=== PATIENT | male | born 1965 | race Caucasian/White ===

== ENCOUNTER 2025-06-04 17:51 | Inpatient (IN) | payer MEDICAID ==
[~2025-06-04] VITALS: Ht 190.5 cm; Wt 114.0 kg
--- NOTE | 2025-06-04 18:23 | Physician Documentation ---
History of Present Illness ~ Chief Complaint: Stroke Alert Stated Complaint: L ARM NUMBNESS/TINGLING Time Seen by MD: 18:18 HPI Patient presents to the emergency room for evaluation of left upper extremity weakness. He has history of prior TIA with lower extremity weakness. Today at 3:15 p.m. patient noted left upper extremity weakness which lasted about 10 minutes while he was cooking but now continues to have paresthesias. No facial symptoms no leg symptoms. He initially presented to procedure urgent care who he reports they told that has nothing they could do and recommended go to the emergency room. Medication Reconciliation Allergies: Coded Allergies: No Known Allergies (Unverified , 06/04/25) Past Medical History Past Medical History: No Pertinent History Past Surgical History: no surgical history Alcohol Use: Occasionally Review of Systems ROS All review of systems negative except as per HPI Physical Exam Vital Signs: Temperature: 97.6, Source: Oral, Heart Rate: 98, Respiratory Rate: 18, Pulse Oximetry: 98, Weight: 114.000 Oxygen Flow Rate: 0 General Appearance General: Patient is awake, alert, oriented x4 in no acute distress. Speaking clearly Head: Normocephalic and atraumatic. Eyes: Conjunctival normal. EOMI. PERRL. ENT: Mucous membranes moist. Neck: Supple, trachea is midline. Chest: Clear to auscultation bilaterally without rales, rhonchi, or wheezes. There is no accessory muscle use or retractions. Cardiac: RRR without murmurs, gallops, or rubs. Neuro: Cranial nerves II-XII grossly intact. 4/5 strength left upper extremity compared to 5/5 strength right upper extremity Progress Results/Orders Results/Orders Orders - HERI GOMEZ MD Chest,Single View (06/04/25 18:53) Ct Stroke Alert (06/04/25 18:10) Cta Neck/Head (06/04/25 18:25) * Vital Signs Routine* [id number] (06/04/25 18:18) * Blood Glucose Assessment * ONCE (06/04/25 18:18) * Npo Until Passed Bedside Swa (06/04/25 18:18) Nursing Swallow Screen (06/04/25 18:18) Page Hospitalist (06/04/25 19:41) Fill Out Med Reconciliation (06/04/25 19:41) Completed Orders - HERI GOMEZ MD Electrocardiogram (06/04/25 18:18) Cbc/Diff (06/04/25 18:18) BMP (06/04/25 18:18) Pt Inr (06/04/25 18:18) PTT (06/04/25 18:18) Type And Screen (06/04/25 18:18) Urinalysis, Cult If Indicated (06/04/25 18:18) Chest,Single View (06/04/25 18:53) Ct Stroke Alert (06/04/25 18:10) Cta Neck/Head (06/04/25 18:25) Iohexol 350mg/Ml 100ml (Omnipaque 350mg/ (06/04/25 18:20) Vital Signs 06/04/25 06/04/25 06/04/25 06/04/25 18:14 18:36 18:49 18:52 Temp 97.6 Pulse 98 56 65 Resp 18 16 16 B/P (MAP) 149/111 158/100 Pulse Ox 98 99 99 O2 Flow Rate 0 06/04/25 06/04/25 18:53 19:54 Temp 97.6 97.6 Pulse 61 94 Resp 16 20 B/P (MAP) 158/100 (119) 136/79 (98) Pulse Ox 98 98 O2 Flow Rate 0 0 Laboratory Tests Test 06/04/25 18:19 06/04/25 18:35 06/04/25 19:09 Glucometer 128 H White Blood Count 6.8 Red Blood Count 5.20 Hemoglobin 13.2 L Hematocrit 40.0 L Mean Corpuscular Volume 76.9 L Mean Corpuscular Hemoglobin 25.4 L Mean Corpuscular Hemoglobin Concent 33.0 Red Cell Distribution Width 19.3 H Platelet Count 147 Mean Platelet Volume 8.8 Neutrophils (%) (Auto) 56.0 Lymphocytes (%) (Auto) 28.1 Monocytes (%) (Auto) 11.5 Eosinophils (%) (Auto) 3.6 Basophils (%) (Auto) 0.8 Neutrophils # (Auto) 3.8 Lymphocytes # (Auto) 1.9 Monocytes # (Auto) 0.8 Eosinophils # (Auto) 0.2 Basophils # (Auto) 0.1 CBC Comment Platelet Estimate Normal Red Blood Cell Morphology Perf Poikilocytosis Few Basophilic Stippling Anisocytosis 3+ Microcytosis Few Macrocytosis 2+ Prothrombin Time 11.9 INR International Normalized Ratio 1.2 Activated Partial Thromboplast Time 27 Coagulation Comments Sodium Level 138 Potassium Level 3.9 Chloride Level 105 Carbon Dioxide Level 28.8 Anion Gap 4 L Blood Urea Nitrogen 30 H Creatinine 1.46 H Estimated GFR/1.73 m2 49 BUN/Creatinine Ratio 20.5 H Glucose Level 101 Calcium Level 7.3 L Albumin 2.6 L Chemistry Comments Urine Specimen Description Cln catch midstream Urine Color Straw Urine Clarity Clear Urine pH 6.5 Urine Specific [place] 1.010 Urine Protein Negative Urine Glucose (UA) Negative Urine Ketones Negative Urine Occult Blood Negative Urine Nitrite Negative Urine Bilirubin Negative Urine Urobilinogen 0.2 Urine Leukocyte Esterase Negative Urine Culture Indicated Not ind Volume Urine Centrifuged 10 ml Urine Comment EKG/XRAY/CT/US/VASC/MRI EKG : Additional Comment EKG interpreted by myself shows time of 1842, rate 91, atrial fibrillation, normal axis, no ST changes Medical Decision Making Additional information obtaine: N/A Findings Patient presents to the emergency room that has symptoms of stroke within the window therefore level one stroke was called. Tele neurologist recommending against TNK as patient's symptoms are improving. EKG shows atrial fibrillation. He is not on anticoagulation. Differential Dx:Considerations: Include: Hall's Palsey, CVA, Delirium tremens, DKA, Drug overdose, Electrolyte imbalance, Encephalopathy, Hypoxemia, Hypoglycemia, Mass lesion, Respiratory failure, Subarachnoid Hemorrhage, TIA, Other Departure Admitted to Inpatient Unit: yes, to hospitalist Impression: Primary Impression: Cerebral infarction Additional Impression: Atrial fibrillation Referrals: NO PRIMARY CARE PROVIDER (PCP) Critical Care Note Total Time (mins): 38 Critical Care Note The very real possibility of a deterioration of this patient's condition required the highest level of my preparedness for sudden, emergent intervention. I provided critical care services, which included medication orders, frequent reevaluations of the patient's condition and response to treatment, ordering and reviewing test results, and discussing the case with various consultants. Ex cludes time spent performing separately billable procedures. The critical care time associated with the care of the patient was 38 minutes not counting procedures Signature Scribe Signature: No scribe Attestation: The note accurately reflects work and decisions made by me.Heri Gomez MD 06/04/25 18:59 HERI GOMEZ MD Jun 04, 2025 18:23
--- NOTE | 2025-06-04 18:43 | RADIOLOGY REPORT ---
EXAM: CT CT STROKE ALERT INDICATION: left sided weakness TECHNIQUE: CT of the head without intravenous contrast. Radiation Dose : 1. Head: CT Dose: CTDI volume is 62.4 mGy. Dose-length product is 1238.55 mGy*cm The dose indicators for CT are the volume Computed Tomography (CT) Dose Index (CTDIvol) and the Dose Length Product (DLP), and are measured in units of mGy and mGy-cm, respectively. These indicators are not patient dose, but values generated from the CT scanner acquisition factors. The report includes radiation exposure data for exposures received during this examination. COMPARISON: CT CTA NECK/HEAD on DOS: 06/04/25 FINDINGS: There is no evidence of acute intracranial hemorrhage, extra-axial collection, mass effect, midline shift, herniation or hydrocephalus. The ventricles, sulci and cisterns are age appropriate. The romo-white differentiation is intact. Patchy periventricular and subcortical white matter hypoattenuation is nonspecific but may be related to small vessel ischemic disease. The visualized paranasal sinuses and mastoid air cells are clear. The surrounding soft tissues and osseous structures are unremarkable. IMPRESSION: No acute intracranial abnormality. Radiation optimization: All CT scans at this facility use at least one of these dose optimization techniques: automated exposure control mA and/or kV adjustment per patient size (includes targeted exams where dose is matched to clinical indication) or iterative reconstruction.
--- NOTE | 2025-06-04 18:44 | ELECTROCARDIOGRAPH REPORT ---
[facility] Test Date: 2025-06-04 Test Time: 18:42:06 Pat Name: CESAR GILLIAM Department: [facility]-ER Patient ID: [facility]-[id number] Room: Gender: M Medical Imaging Director: : 1965 Requested By: AARON BATUISTA Order Number: [id number] Reading MD: Dr. Ruperto Cardenas Measurements Intervals [place] Rate: 91 P: 0 IN: 0 QRS: 74 QRSD: 117 T: 239 QT: 346 QTc: 426 Interpretive Statements Atrial fibrillation Incomplete right bundle branch block LVH with secondary repolarization abnormality Electronically Signed On 06-04-2025 20:35:[address] Ruperto Cardenas Please click the below link to view image of tracing.
[2025-06-04 19:01] LABS: MEAN PLATELET VOLUME 8.8 FL (7.4-10.4); RED CELL DISTRIBUTION WIDTH 19.3 % (11.5-14.5)
[2025-06-04 19:06] LABS: CREATININE 1.46 MG/DL (0.60-1.10); TOTAL CARBON DIOXIDE 28.8 MMOL/L (24-32); eCRCL 64 ML/MIN; eGFR 49 ML/MIN
[2025-06-04 19:10] LABS: APTT 27 SECONDS (22-32); INR 1.2 INR
--- NOTE | 2025-06-04 19:11 | RADIOLOGY REPORT ---
EXAM: CT CTA NECK/HEAD CLINICAL HISTORY: left sided weakness TECHNIQUE: CT angiogram of the head and neck was performed without and with intravenous contrast. 3D MIP reconstructed images were created and archived on the PACS system. This exam was performed according to our departmental dose optimization program. Up-to-date CT equipment and radiation dose reduction techniques are utilized as appropriate. COMPARISON: CT CT STROKE ALERT on DOS: 06/04/25 FINDINGS: CTA head: Dominant right vertebral artery. Mild mixed atherosclerotic plaque in the bilateral V4 segments. There is mild calcified atherosclerotic plaque in the bilateral cavernous and supraclinoid ICAs. The distal internal carotid, vertebral, and basilar arteries are patent without focal narrowing or occlusion. The anterior, middle, and posterior cerebral arteries are patent without focal narrowing. No aneurysm or arteriovenous malformation is identified. CTA neck: The aortic arch vessel origins are widely patent. The common carotid and cervical portions of the internal carotid and right vertebral arteries are patent without focal narrowing according to NASCET criteria. There is occlusion of the left vertebral artery with reconstitution of blood flow at the V3 se gment. There is [id number] mixed atherosclerotic plaque at the bilateral carotid bifurcations. No aneurysm, AVM, or dissection is identified. The cervical soft tissues are unremarkable. The paranasal sinus and mastoid air cells are clear. The lung apices are clear. Multilevel cervical spondylosis with moderate disc space narrowing at C4-C5 and C5-C6. IMPRESSION: 1. 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 DDX includes dissection or atherosclerotic occlusion. 2. Otherwise patent arteries in the head and neck without large vessel occlusion, significant stenosis, aneurysm, AVM, or dissection.
--- NOTE | 2025-06-04 19:19 | RADIOLOGY REPORT ---
CHEST RADIOGRAPH Indication: Stroke Alert Technique: Single frontal view of the chest was obtained COMPARISON: CT CTA NECK/HEAD on DOS: 06/04/25 FINDINGS: Lines and Tubes: None Lungs: Clear Pleura: No effusion. No pneumothorax. Cardiomediastinal contours: Cardiomegaly Bones: Unremarkable IMPRESSION: Cardiomegaly.
[2025-06-04 19:28] LABS: LEUKOCYTE ESTERASE ,URINE NEGATIVE (Neg); NITRITES, URINE NEGATIVE (Neg); OCCULT BLOOD,URINE NEGATIVE (Neg)
[2025-06-04 19:29] LABS: PLATELET ESTIMATE NORMAL
[2025-06-04 19:33] LABS: UA COLLECTION TYPE CLN CATCH MIDSTREAM
--- NOTE | 2025-06-04 19:44 | [facility]URO CONSULT REPORT ---
[facility] Procedure Note [facility] Procedure Note Consult [facility] Note # Demographics Consult Type: Acute Stroke Level 2 (4.5-24 hrs) Patient Location: Emergency Room First Name: CESAR Last Name: MANE Date of : 1965 Age: 59 Gender: Male Facility: [facility] Time of Initial Page (): 06/04/2025 18:37 First Contact with Site (): 06/04/2025 18:37 # HPI History: 59 y/o M presents with Lt hand weakness and numbness with onset at 345PM. Symptoms have resolved. # Scores Time of exam and NIHSS (): 06/04/2025 18:43 Level of Consciousness 1a: [0] = Alert; keenly responsive LOC Questions 1b: [0] = Answers both questions correctly LOC Commands 1c: [0] = Performs both tasks correctly Best Gaze 2: [0] = Normal Visual 3: [0] = No visual loss Facial Palsy 4: [0] = Normal symmetrical movements Motor Arm Left 5a: [0] = No drift Motor Arm Right 5b: [0] = No drift Motor Leg Left 6a: [0] = No drift Motor Leg Right 6b: [0] = No drift Limb Ataxia 7: [0] = Absent Sensory 8: [0] = Normal Best Language 9: [0] = No aphasia Dysarthria 10: [0] = Normal Extinction and Inattention 11: [0] = No abnormality NIHSS Total: 0 # Data Head CT: negative for acute changes CTA Head: no large vessel occlusion CTA Neck: 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 # Assessment Impression: - Ischemic Stroke (Acute) # Plan Thrombolytic/Intervention: NOT IV Thrombolysis or IA Intervention candidate Thrombolytic Exclusion (< 3 hour window): - NIHSS = 0 Intraarterial Exclusion: - no large vessel occlusion (LVO) Target Blood Pressure: - SBP < 220 - DBP < 120 Labs: - CBC - comprehensive metabolic panel - lipid panel Imaging: (urgency: routine): - MRI Brain without contrast Diagnostic Test: - echo with bubble study Therapy/Evaluation: - PT/OT evaluation - speech/swallow consultation Medication: - aspirin 81 mg PO PLUS clopidogrel (Plavix) 75 mg PO daily for 21 days, then monotherapy thereafter DVT Prophylaxis: - enoxaparin (Lovenox) 40 mg subcutaneously daily Other: - If patient has any neurological deterioration please call me back immediately - LDL < 70 - telemetry monitoring permissive HTN 24 hrs # Logistics Attestation of consult completion: The patient is located at: [facility]. Facility staff participated in the visit. I performed this t elemedicine visit from my offsite office utilizing interactive 2 way audio and visual telecommunication technology at the request of the onsite emergency room provider. Total time spent in telemedicine encounter: I spent 30 minutes reviewing clinical data and/or imaging, obtaining history, examining the patient, communicating with the onsite care team, and in preparation of this report. # Demographics First Name: CESAR Last Name: MANE Facility: [facility] Electronically signed at 06/04/2025 19:44 ([place] Time) by Cely Muniz DO Neuro Consult Order placed for: Yes SASKIA MUNIZ DO Jun 04, 2025 19:44
[2025-06-04] MEDS ORDERED: magnesium sulf-water 2g/50mL 50 ML IV PRN (20:30)
[2025-06-04] MEDS ORDERED: ondansetron/PF 4mg/2ml inj IV PRN (20:30)
[2025-06-04] MEDS ORDERED: magnesium sulf-water 4G/100mL 100 ML IV PRN (20:30)
[2025-06-04] MEDS ORDERED: potassium Cl 20 mEq SR tablet PO PRN ×2 (20:30)
[2025-06-04] MEDS ORDERED: magnesium hydroxide 30ml (MOM) UD suspension PO PRN (20:30)
[2025-06-04] MEDS ORDERED: glucagon, human recombinant 1mg kit SUBCUT PRN (20:30)
[2025-06-04] MEDS ORDERED: dextrose 50%-water 50ml dispensing syringe IV PRN ×2 (20:30)
[2025-06-04] MEDS ORDERED: potassium Cl 40MEQ/1/2NS 520ml 520 ML IV PRN (20:30)
[2025-06-04] MEDS ORDERED: HYDROcodone/acetaminophen 5mg/325mg tablet PO PRN (20:30)
[2025-06-04] MEDS ORDERED: mag hydrox/Alum hydrox/simeth 30ml oral suspension PO PRN (20:30)
[2025-06-04] MEDS ORDERED: DEXTROSE 15 GM of carb/4 tabs (each vial/BOTTLE has 4 tablets) PO PRN ×2 (20:30)
[2025-06-04] MEDS ORDERED: magnesium Cl slow-release 64mg tablet PO PRN (20:30)
[2025-06-04] MEDS: normal saline 1000ml 1,000 ML IV SCH (20:58)
[2025-06-04] MEDS: INSULIN LISPRO 100 UNIT/ML INSULN.PEN MULTI-DOSE SQ SCH (21:00)
[2025-06-04] MEDS: PERFLUTREN PROTEIN-A MICROSPHR (Optison) 0.22 MG/ML 3ML VIAL IV ONE (21:02)
[2025-06-04 21:11] LABS: CHOL/HDL RATIO 5.7 (0.00-4.99); LDL CHOLESTEROL 115 MG/DL (50-100); PHOSPHORUS 3.6 MG/DL (2.3-4.5); PRO BRAIN NATRIURETIC PEPTIDE 2358 PG/ML (0-125)
[2025-06-04 21:15] LABS: OSMOLALITY 299 MOSM/K (280-300)
[2025-06-04 21:19] LABS: OSMOLALITY UA 715 MOSM/K (50-1400)
[2025-06-04 21:31] LABS: % IRON SATURATION 11 % (11-46)
[2025-06-04 21:35] VITALS: BP 149/110; PULSE 65; RESP 16; TEMP 97.8; O2SAT 100
[2025-06-04 21:39] LABS: URINE AMPHETAMINE SCREEN NEGATIVE (Neg); URINE BARBITUATE SCREEN NEGATIVE (Neg); URINE BENZODIAZEPINES SCREEN NEGATIVE (Neg); URINE CANNABINOID SCREEN NEGATIVE (Neg); URINE COCAINE SCREEN NEGATIVE (Neg); URINE METHADONE SCREEN NEGATIVE (Neg); URINE OPIATE SCREEN NEGATIVE (Neg); URINE PHENCYCLIDINE SCREEN NEGATIVE (Neg)
[2025-06-04 22:00] VITALS: BP 148/104; PULSE 66; RESP 21; TEMP 98.3; O2SAT 98
--- NOTE | 2025-06-04 22:23 | HISTORY AND PHYSICAL-Residence ---
History & Physical Providers to CC Resident Creating Document: ROSANA DAVENPORT, RES CC: APRIL PURVIS MD ~ History of Present Illness Reason for Admit\Complaint: TIA History of Present Illness A 59-year-old male patient with a history of transient ischemic attack (TIA) two years ago, but no other significant medical history, presented to the ED with complaints related to his left upper extremity weakness. The patient reported that while cooking, he attempted to sampler pickup an object with his left hand but was unable to do so. He experienced weakness in his left arm, which persisted despite waiting for it to resolve. The patient visited a medical walk-in clinic called [facility] but did not undergo any testing there and subsequently returned home, hoping his symptoms would improve. However, he continued to experience paresthesia and weakness in his left arm, prompting him to return to the ED. Upon presentation, he was evaluated for a stroke, and a teleneurologist was consulted. A head CT scan was performed, which showed no acute changes or vessel occlusion. 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 Since the patient was outside the thrombolytic window, he did not receive any thrombolysis. By the time of his evaluation in the ED, NIHSS score was 0, and his symptoms had resolved. There were no residual symptoms of acute ischemic stroke. On my evaluation, patient did not have any residual symptoms/motor weakness; however patient's EKG showed rate controlled atrial fibrillation, new onset In addition patient also stated that he has been feeling fatigued tired and his increase in urination for up to 4 times every night for the last one year. He also stated that he noticed increasing shortness of breath palpitation and gets easily winded windows more than his routine activities. He used to be extremely active and could run 5 miles very easily but now he is finding it difficult. The patient does not have a primary care doctor and wishes to establish care with one upon discharge. He lives in his home with his son and also visits an anti-aging doctor named Parminder Hernandez for testosterone injections. Allergies: Coded Allergies: No Known Allergies (Unverified , 06/04/25) Past Medical History Past Medical History Prior TIA two years ago Past Social History Social History Comment Patient drinks about 2-3 beers for about 3 times a week Patient stated that he smokes marijuana and does cocaine occasionally Patient denies smoking tobacco Alcohol Use: Occasionally ROS ROS Constitutional: No fever, dizziness, no weakness, no decrease in appetite HEENT: Normal vision. No sore throat, epistaxis, tinnitus Cardiovascular: No chest pain/discomfort, palpitations, syncope. no pedal edema Respiratory: No sob, cough,hemoptysis Gastrointestinal: No abdominal pain, nausea, vomiting. No diarrhea, melena. Genitourinary: No frquency, urgency, incontinence, nocturia. No dysuria, hematuria Musculoskeletal: Normal, no pains Endocrine: No fatigue, polydipsia, polyuria. No heat or cold intolerance Neurologic: No headache, vertigo. No weakness, numbness or tingling of extremities Psychiatric: No hallucinations/delusions, no anhedonia, no suicidal ideation Hematologic: No bruises Exam Vitals: Vital Signs Date Time Temp Pulse Resp B/P (MAP) Pulse Ox O2 Delivery O2 Flow Rate FiO2 06/04/25 20:29 97.6 101 14 150/111 (124) 99 0 General: General: Awake, oriented to person, place and time HEENT: Conjunctive are pink, sclerae clear, no icterus, pupil is equal in both sides, reactive to light, no ear discharge, no pharyngeal erythema or an edema. Neck: Supple, no JVD, no lymphadenopathy and thyromegaly. Chest: Equal air entry on both lungs, no additional sounds no rhonchi no wheezing at the moment. Bilateral gynecomastia noted Cardiovascular: S1-S2 irregular rate and rhythm, no gallops, no rubs, no murmurs Abdomen: No visible peristalsis, Bowel sounds present on auscultation, soft, no tenderness, no guarding, no rigidity Extremities: no pitting edema bilaterally, capillary refill intact, peripheral pulsations are intact on both sides. Bilateral lower extremity varicose veins noted, bilateral lower extremity near vision scars post mountain biking Neurologic: Mental status: alert and conscious, oriented to place, person and time, preserved memory, normal speech. Cranial nerves I-XII: Normal. Motor system: Preserved power, coordination, no evidenced involuntary movements, strength 5/5 in four extremities. Sensory system: Preserved temperature, pain and vibration sensation. 2+ deep tendon reflexes in biceps, triceps, quadriceps. Negative Babinski. Cerebellar: No nystagmus, dysdiadochokinesia, normal [id number] testing. Musculoskeletal: No joint swelling, deformities, inflammations, and no scoliosis and back tenderness Skin: Warm and dry. Dry oral mucosa. Diagnostic Data Last Recorded Lab Results: [id number] Diagnostic Data: Laboratory Tests Test 06/04/25 18:35 Prothrombin Time 11.9 SECONDS (9.0-12.0) INR International Normalized Ratio 1.2 INR Activated Partial Thromboplast Time 27 SECONDS (22-32) Coagulation Comments Advance Care Planning Advanced Care plannin - 30 Minutes (Spent 17 minutes discussing advanced care planning/resuscitative measures, patient decided he wants to be full code) Additional Plan Assessment: A 59-year-old male patient with a history of transient ischemic attack (TIA) two years ago, but no other significant medical history, presented to the ED with complaints related to his left upper extremity. Patient's TIA has resolved. Patient also developed new onset atrial fibrillation rate controlled. 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 Re-consulted teleneurologist-they recommended patient to be on Eliquis only; and recommended not to initiate aspirin/clopidogrel Follow up with lipid panel, echocardiogram with bubble study, MRI head Newly diagnosed atrial fibrillation, rate controlled Agustín Vasc score 2 Initiated the patient on Eliquis 5 mg b.i.d. Continue telemetry monitoring TSH normal Consult cardiology in a.m. Acute kidney injury on CKD stage II RISHABH secondary to possible vasomotor nephropathy Patient's creatinine is elevated 1.46 Ordered urine lytes Possible newly diagnosed congestive heart failure NYHA class I, AHA stage A Patient stated that he has been feeling fatigue, increase in shortness of breath and getting winded down compared to before, decrease in physical activity ProBNP elevated at 2358, chest x-ray shows cardiomegaly Ordered echocardiogram Possible newly diagnosed type 2 diabetes mellitus Patient reported increased symptoms of fatigue, frequent urination Blood glucose levels elevated 147, initiated the patient on hyperglycemia hypoglycemic protocol Ordered HbA1c Patient takes testosterone injections for sexual satisfaction Active use of marijuana/cocaine U tox negative Substance use navigator consulted Code Status: Full code DVT Prophylaxis: Eliquis Lines/Tubes: PIV Nutrition: Heart healthy diet PT:yes Prognosis: Guarded Disposition: Follow up with echocardiogram, reconsult teleneurologist depending on MRI report. Please establish care with a primary care doctor for the patient on discharge. Consult cardiology in am Rosana Davenport MD Internal medicine resident,PGY-1 Patient seen and assessed using HIPAA compliant audio visual aid. I discussed the plan with resident and agree with H and P and assessment and plan. April Purvis MD Critical Care Date of Service: Jun 04, 2025 Billing Provider: APRIL PURVIS MD, JAHNAVI, RES Jun 04, 2025 22:23 APRIL PURVIS MD Jun 05, 2025 18:14
[2025-06-04 23:34] VITALS: RESP 21; O2SAT 100
[2025-06-05 02:00] VITALS: BP 106/68; PULSE 95; RESP 25; TEMP 97.8; O2SAT 96
[2025-06-05 04:45] LABS: MEAN PLATELET VOLUME 8.5 FL (7.4-10.4); RED CELL DISTRIBUTION WIDTH 19.0 % (11.5-14.5)
[2025-06-05 04:58] LABS: CREATININE 1.11 MG/DL (0.60-1.10); TOTAL CARBON DIOXIDE 26.0 MMOL/L (24-32); eCRCL 84 ML/MIN; eGFR 67 ML/MIN
[2025-06-05 06:00] VITALS: BP 133/98; PULSE 52; RESP 18; TEMP 96.8; O2SAT 99
[2025-06-05] MEDS ORDERED: NO HOME MEDS (07:55)
[2025-06-05] MEDS: docusate sod 100mg capsule PO SCH (07:57)
[2025-06-05] MEDS: K and/or MAG REPLACEMENT MC SCH (07:58)
[2025-06-05 08:00] VITALS: RESP 18; O2SAT 99
[2025-06-05] MEDS ORDERED: aspirin 81mg, enteric-coated 1 TAB TABLET.DR PO SCH (08:00)
[2025-06-05 10:00] VITALS: BP 118/68; PULSE 64; RESP 16; TEMP 97.7; O2SAT 100
--- NOTE | 2025-06-05 17:07 | CONSULTATION REPORT ---
History of Present Illness Providers to CC CC: JOSE CARLOS SMITH MD ~ Reason for Admit\Admit Dx: Cardiology Consultation Refering MD: Hospitalist/Residency Service History of Present Illness This is a 59 year-old male who presented to the ER 06/04/25 with sudden onset of left arm weakness. PMH significant for TIA 2 years ago, no other cardiovascular history. CTA revealed left vertebral artery occlusion. EKG revealed him to be in Afib, which he has no known history of. 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 He has a history of alcohol and drug abuse, but these are not daily habits. Allergies: Coded Allergies: No Known Allergies (Unverified , 06/04/25) Active prescriptions Active Cardiac Medications: Eliquis 5mg BID Atorvastatin 80mg QD Home Medications Home Medications Active Reported Testosterone injections per Dr. Parminder Hernandez. Herbal supplements to support sleep. Past Medical History Medical History Comment TIA two years ago Past Surgical History Surgical History Comment No cardiopulmonary surgical history Past Family History Family History: FH: diabetes mellitus FATHER Past Social History Social History Comment Pt. drinks alcohol 3 days per week, mostly on the weekends. Pt. smokes marijuana occasionally. Pt. uses cocaine occasionally (last use 05/31/25). Pt. denies nicotine use Physical Exam Last Vital Signs Recorded: Temperature: 97.7, Source: Oral, Heart Rate: 64, Respiratory Rate: 16, BP: 118/68, Pulse Oximetry: 100, Weight: 114.000 General Appearance: alert, no apparent distress EENT: PERRL/EOMI Neck: normal inspection, full range of motion Respiratory: lungs clear, normal breath sounds, no respiratory distress Chest: no accessory muscle use Cardiovascular: normal peripheral pulses, no edema Peripheral Pulses: 2+ radial (R), 2+ radial (L), 2+ dorsalis pedis (R), 2+ dorsalis pedis (L) Gastrointestinal: normal palpation, non-tender, bowels sounds present Extremities: normal range of motion Extremities Slight residual weakness in left hand compared to right Neurologic: oriented x4, memory intact Psychiatric: normal mood/affect Skin: normal color Lymphatic: no adenopathy Review of Systems All Other Systems at this time: Reviewed and Negative ROS ROS reviewed and negative except that which is specified in HPI Results EKG EKG Atrial Fibrillation, CVR. 91bpm. Incomplete RBBB Echocardiogram Echocardiogram Awaiting dictated report. Initial impression: LVEF 35-40% X-ray X-ray FINDINGS: Lungs: Clear Pleura: No effusion. No pneumothorax. Cardiomediastinal contours: Cardiomegaly Bones: Unremarkable IMPRESSION: Cardiomegaly. Other Other CTA Head and Neck 1. 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 DDX includes dissection or atherosclerotic occlusion. 2. Otherwise patent arteries in the head and neck without large vessel occlusion, significant stenosis, aneurysm, AVM, or dissection. Diagram Lab Result Diagram: 06/05/2542706/05/25427 Assessment/Plan Additional Plan This is a 59 year-old male who presented to the ER 06/04/25 with sudden onset of left arm weakness. PMH significant for TIA 2 years ago, no other cardiovascular history. CTA revealed left vertebral artery occlusion. EKG revealed him to be in Afib, which he has no known history of. Chronic Systolic Heart Failure LVEF estimated at 35-40% (awaiting Mat Puncher dictation) History of binge drinking ETOH, cocaine use. proBNP 2,358 -Start Entresto 24/26mg BID -Start Spironolactone 25mg QAM -Start Metoprolol Succinate 25mg QD -Start Jardiance 10mg QD -Pt. counselled on making changes to healthier lifestyle choices. -Follow up as outpatient for management of HFrEF, and up-titration of GDMT. Atrial Fibrillation -Continue Eliquis 5mg BID -Metoprolol as above for rate control. -Follow up as outpatient for further management of Afib. This plan was discussed with supervising physician, Dr. Jacob Smith, who agrees with above. Supervising MD Supervising Physician: DELMI Gottlieb Jun 05, 2025 17:07
--- NOTE | 2025-06-05 17:48 | CARDIOLOGY REPORT ---
APPROVED REPORT EXAM: Comprehensive 2D, Doppler, and color-flow Echocardiogram with saline. 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 4.01 cm IVC 23.76 mm FS (%) 16.6 % SV 68.0 ml CO 8.2 L/min M-Mode Dimensions MV EPSS 1.7 (<0.5cm) Aortic Valve AoV Peak Hermilo. 143.2 cm/s AoV VTI 19.1 cm AO Peak GR. 8.2 mmHg AO Mean GR. 4 mmHg LVOT VTI 14.07 cm LVOT Peak Hermilo. 89.7 cm/s CHRIS(VTI)/BSA 3.26 cm2/m2 CHRIS (VTI) 3.26 cm2 AV DI 0.74 % Mitral Valve MV E Velocity 78.8 cm/s MV Peak Gr. 4 mmHg MV DECEL TIME 120 ms MV PHT 52 ms MVA (PHT) 4.23 cm2 MR VMax 446.4 cm/s MV VMax 96.9 cm/s MR PG Max 79.7 mmHg Tricuspid Valve TR P. Velocity 272 cm/s RAP ESTIMATE 10 mmHg TR Peak Gr. 30 mmHg RVSP 40 mmHg LEFT VENTRICLE LV is moderately dilated with moderate concentric hypertrophy. Overall systolic function appears severely reduced with global hypokinesis. LVEF is 35%. RIGHT VENTRICLE RV appears mildly dilated with normal contractility. RVSP is estimated at 40 mmHG. ATRIA Left atrium is severely dilated. Saline study was performed with 2 IV injections of 10 ccs of agitated normal saline at rest, with cough, and with valsalva. Negative saline study for right to left flow. AORTIC VALVE Trileaflet AV appears sclerotic without stenosis. Trace insufficiency. MITRAL VALVE MV is thickened with mild annular thickening and no stenosis. Trace to mild mitral regurgitation. TRICUSPID VALVE The tricuspid valve is normal in structure. Trace tricuspid regurgitation. PULMONIC VALVE The pulmonary valve is normal in structure. Trace pulmonic insufficiency. GREAT VESSELS The aortic root is normal in size. The ascending aorta is measured at 4.0 cm. IVC is dilated and collapses greater than 50% with inspiration. PERICARDIUM There is no pericardial effusion. Other Information Study Quality: Adequate Conclusion LV is moderately dilated with moderate concentric hypertrophy. Overall systolic function appears severely reduced with global hypokinesis. LVEF is 35%. RV appears mildly dilated with normal contractility. RVSP is estimated at 40 mmHG. Left atrium is severely dilated. Saline study was performed with 2 IV injections of 10 ccs of agitated normal saline at rest, with cough, and with valsalva. Negative saline study for right to left flow. Trileaflet AV appears sclerotic without stenosis. Trace insufficiency. MV is thickened with mild annular thickening and no stenosis. Trace to mild mitral regurgitation. The tricuspid valve is normal in structure. Trace tricuspid regurgitation. The pulmonary valve is normal in structure. Trace pulmonic insufficiency. The ascending aorta is measured at 4.0 cm. There is no pericardial effusion.
[2025-06-05 18:00] VITALS: BP 135/108; PULSE 114; RESP 17; TEMP 97.6; O2SAT 99
[2025-06-05] MEDS: sacubitril/valsartan 24mg-26mg tablet PO SCH (20:51)
--- NOTE | 2025-06-05 20:53 | PROGRESS NOTE ---
Daily Progress Note Providers to CC ~ Antibiotic Timeout Antibiotic Ordered?: No Subjective Patient was seen in his room as per patient his weakness over left upper extremity resolved he was ambulating well speech normal. Patient mentioned that he is taking testosterone in outpatient setting in I strongly recommended to stop him as it increases risk for stroke and [place] . Patient admitted that he use cocaine and willing to stop it. Patient does not have any PCP or school psychology specialist in outpatient setting. Echocardiogram done which showed ejection fraction 35% with RVSP 40. Cardiology consultation requested from Dr. Ethan Smith and Cardiology team evaluated the patient today. CTA revealed left vertebral artery occlusion which I discussed with Dr. Oh and he does not recommend any surgical procedure and to consult teleNeurology specialist who evaluated the patient. Objective Vital Signs Date Time Temp Pulse Resp B/P (MAP) Pulse Ox O2 Delivery O2 Flow Rate FiO2 06/05/25 18:30 106 06/05/25 18:00 97.6 17 135/108 (117) 99 Room Air 06/04/25 20:29 0 Result Diagram: 06/05/25 0428 06/05/25 0428 General-patient not in any acute distress, obese, alert awake oriented, HEENT-atraumatic normocephalic, neck supple without elevated JVD, no thyromegaly or carotid bruit. No lymphadenopathy bilaterally. Eyes-no icterus or pallor seen in eyes Chest-clear to auscultation bilaterally, breathing nonlabored no tachypnea, no wheezing, no crepitation, no crackles. Heart-S1-S2 normal, regular heart rate no murmur Abdomen bowel sounds positive on auscultation, soft nondistended nontender no guarding, no rigidity Skin -multiple skin tattoo present over extremities and chest Neurology-grossly intact, nonfocal alert awake oriented, no focal neurological deficit present no drooping of angle of mouth no speech abnormality no weakness over extremities. Extremity- no pedal edema able to move all 4 extremities, ambulating well Psychiatry - patient is not confused or agitated cooperated during physical examination Coagulation Studies Laboratory Tests Test 06/04/25 18:35 Prothrombin Time 11.9 SECONDS (9.0-12.0) INR International Normalized Ratio 1.2 INR Activated Partial Thromboplast Time 27 SECONDS (22-32) Coagulation Comments Problem\Assessment\Plan A 59-year-old male patient with a history of transient ischemic attack (TIA) two years ago, but no other significant medical history, presented to the ED with complaints related to his left upper extremity. Patient's TIA has resolved. Patient also developed new onset atrial fibrillation rate controlled. He is currently being monitored for further strokes, being treated for AFib. Patient was seen in his room as per patient his weakness over left upper extremity resolved he was ambulating well speech normal. Transient ischemic attack resolved NIHSS score 0 ABCD2 score 5 points [4-5 points: Moderate Risk , 2-Day Stroke Risk: 4.1% ,7-Day Stroke Risk: 5.9%,90-Day Stroke Risk: 9.8%] Patient had left-sided upper extremity numbness and weakness, resolved Did not undergo any thrombolysis was outside thrombolysis window Head CT did not show any acute intracranial abnormality, CTA head and neck reported Occlusion of the extracranial left vertebral artery with reconstitution of blood flow at the V3 segment Tele neurologist was consulted, recommended echo with bubble study, MRI head without contrast Plan His CTA revealed left vertebral artery occlusion which I discussed with Dr. Ivan and he does not recommend any surgical procedure and to consult teleNeurology specialist who evaluated the patient. Neuro checks in place Did not initiate the patient on aspirin/clopidogrel at this point because he is on Eliquis for his newly diagnosed atrial fibrillation. Re-consulted teleneurologist-they recommended patient to be on Eliquis only; and recommended not to initiate aspirin/clopidogrel Follow up with lipid panel, echocardiogram with bubble study, MRI head Patient is ambulating well , no speech abnormality Newly diagnosed atrial fibrillation, rate controlled Agustín Vasc score 2 Initiated the patient on Eliquis 5 mg b.i.d. Continue telemetry monitoring TSH normal Cardiology consultation done today patient is on metoprolol and Eliquis Acute kidney injury on CKD stage II RISHABH secondary to possible vasomotor nephropathy Patient's creatinine is elevated 1.46 Ordered urine lytes Possible newly diagnosed congestive heart failure NYHA class I, AHA stage A Patient stated that he has been feeling fatigue, increase in shortness of breath and getting winded down compared to before, decrease in physical activity ProBNP elevated at 2358, chest x-ray shows cardiomegaly Echocardiogram done which showed ejection fraction 35% with RVSP 40. Cardiology consultation requested from Dr. Ethan Smith and Cardiology team evaluated the patient today. Recommended to start Entresto, spironolactone, metoprolol, Jardiance and to continue Eliquis 5 mg b.i.d. for afib . Possible newly diagnosed type 2 diabetes mellitus Patient reported increased symptoms of fatigue, frequent urination Blood glucose levels elevated 147, initiated the patient on hyperglycemia hypoglycemic protocol Ordered HbA1c Patient mentioned that he is taking testosterone in outpatient setting and I strongly recommended to stop him as it increases risk for stroke and [place] Active use of marijuana/cocaine U tox negative Substance use navigator consulted Patient admitted that he use cocaine and willing to stop it. Code Status: Full code DVT Prophylaxis: Eliquis Lines/Tubes: PIV Nutrition: Heart healthy diet PT:yes Patient's current condition is guarded we will continue to follow patient in AM . Date of Service: Jun 05, 2025 Billing Provider: MARC LOPES MD Common Visit Codes: [id number] INP/OBS CARE(HIGH) MARC LOPES MD Jun 05, 2025 20:53
[2025-06-05 22:00] VITALS: BP 134/84; PULSE 57; RESP 27; TEMP 97.9; O2SAT 100
[2025-06-06] VITALS (7 sets, daily range): BP systolic 92–133; BP diastolic 58–96; PULSE 52–98; RESP 15–30; TEMP 97–98.3; O2SAT 95–100
[2025-06-06 06:01] LABS: MEAN PLATELET VOLUME 8.9 FL (7.4-10.4); RED CELL DISTRIBUTION WIDTH 19.1 % (11.5-14.5)
[2025-06-06 06:21] LABS: CREATININE 1.18 MG/DL (0.60-1.10); TOTAL CARBON DIOXIDE 26.9 MMOL/L (24-32); eCRCL 79 ML/MIN; eGFR 63 ML/MIN
[2025-06-06 06:52] LABS: BANDS% (MANUAL) 1.0 % (0-10); BASOPHILS % (MANUAL) 1.0 % (0-1); EOSINOPHILS % (MANUAL) 2.0 % (0-6); LYMPHOCYTES % (MANUAL) 19.0 % (21-51); METAMYLEOCYTES% (MANUAL) 1.0 % (0-0); MONOCYTES % (MANUAL) 16.0 % (2-12); NEUTROPHILS % (MANUAL) 60.0 % (42-75); PLATELET ESTIMATE NORMAL
[2025-06-06 06:53] LABS: LARGE PLATELETS MODERATE
[2025-06-06] MEDS: EMPAGLIFLOZIN 10 MG TABLET PO SCH (07:59)
[2025-06-06] MEDS: metoprolol succinate 25mg (24-HOUR) SR. Tablet PO SCH (08:00)
--- NOTE | 2025-06-06 19:51 | PROGRESS NOTE ---
Daily Progress Note Providers to CC ~ Antibiotic Timeout Antibiotic Ordered?: Yes Subjective Patient was seen in presence of nursing staff Cristy today. All discharge instructions provided to patient in detail detailed counseling done regarding atrial fibrillation and new onset congestive heart failure care plan discussed in detail. Patient was advised to get the primary care physician and get the referral to Neurology specialist hvac specialist in outpatient setting. Patient was strongly advised to stop tobacco alcohol and risks explained. Echocardiogram findings explained to him. Patient was convinced to get the MRI and MRA head today. We will hold the discharge today as MRI was not done. Objective Vital Signs Date Time Temp Pulse Resp B/P (MAP) Pulse Ox O2 Delivery O2 Flow Rate FiO2 06/06/25 18:00 97.4 55 18 130/96 (107) 98 Room Air 06/04/25 20:29 0 Result Diagram: 06/06/2545006/06/25 045 General-patient not in any acute distress, obese, alert awake oriented, HEENT-atraumatic normocephalic, neck supple without elevated JVD, no thyromegaly or carotid bruit. No lymphadenopathy bilaterally. Eyes-no icterus or pallor seen in eyes Chest-clear to auscultation bilaterally, breathing nonlabored no tachypnea, no wheezing, no crepitation, no crackles. Heart-S1-S2 normal, regular heart rate no murmur Abdomen bowel sounds positive on auscultation, soft nondistended nontender no guarding, no rigidity Skin -multiple skin tattoo present over extremities and chest Neurology-grossly intact, nonfocal alert awake oriented, no focal neurological deficit present no drooping of angle of mouth no speech abnormality no weakness over extremities. Extremity- no pedal edema able to move all 4 extremities, ambulating well Psychiatry - patient is not confused or agitated cooperated during physical examination Coagulation Studies Laboratory Tests Test 06/04/25 18:35 Prothrombin Time 11.9 SECONDS (9.0-12.0) INR International Normalized Ratio 1.2 INR Activated Partial Thromboplast Time 27 SECONDS (22-32) Coagulation Comments Problem\Assessment\Plan A 59-year-old male patient with a history of transient ischemic attack (TIA) two years ago, but no other significant medical history, presented to the ED with complaints related to his left upper extremity. Patient's TIA has resolved. Patient also developed new onset atrial fibrillation rate controlled. He is currently being monitored for further strokes, being treated for AFib. Patient was seen in his room as per patient his weakness over left upper extremity resolved he was ambulating well speech normal. Transient ischemic attack resolved NIHSS score 0 ABCD2 score 5 points [4-5 points: Moderate Risk , 2-Day Stroke Risk: 4.1% ,7-Day Stroke Risk: 5.9%,90-Day Stroke Risk: 9.8%] Patient had left-sided upper extremity numbness and weakness, resolved Did not undergo any thrombolysis was outside thrombolysis window Head CT did not show any acute intracranial abnormality, CTA head and neck reported Occlusion of the extracranial left vertebral artery with reconstitution of blood flow at the V3 segment Tele neurologist was consulted, recommended echo with bubble study, MRI head without contrast Plan His CTA revealed left vertebral artery occlusion which I discussed with Dr. Ivan and he does not recommend any surgical procedure and to consult teleNeurology specialist who evaluated the patient. Neuro checks in place Did not initiate the patient on aspirin/clopidogrel at this point because he is on Eliquis for his newly diagnosed atrial fibrillation. Re-consulted teleneurologist-they recommended patient to be on Eliquis only; and recommended not to initiate aspirin/clopidogrel Follow up with lipid panel, echocardiogram with bubble study, MRI head Patient is ambulating well , no speech abnormality Newly diagnosed atrial fibrillation, rate controlled Agustín Vasc score 2 Initiated the patient on Eliquis 5 mg b.i.d. Continue telemetry monitoring TSH normal Cardiology consultation done today patient is on metoprolol and Eliquis Acute kidney injury on CKD stage II RISHABH secondary to possible vasomotor nephropathy Patient's creatinine is elevated 1.46 Ordered urine lytes Possible newly diagnosed congestive heart failure NYHA class I, AHA stage A Patient stated that he has been feeling fatigue, increase in shortness of breath and getting winded down compared to before, decrease in physical activity ProBNP elevated at 2358, chest x-ray shows cardiomegaly Echocardiogram done which showed ejection fraction 35% with RVSP 40. Cardiology consultation requested from Dr. Ethan Smith and Cardiology team evaluated the patient today. Recommended to start Entresto, spironolactone, metoprolol, Jardiance and to continue Eliquis 5 mg b.i.d. for afib . Possible newly diagnosed type 2 diabetes mellitus Patient reported increased symptoms of fatigue, frequent urination Blood glucose levels elevated 147, initiated the patient on hyperglycemia hypoglycemic protocol Ordered HbA1c Patient mentioned that he is taking testosterone in outpatient setting and I strongly recommended to stop him as it increases risk for stroke and [place] Active use of marijuana/cocaine U tox negative Substance use navigator consulted Patient admitted that he use cocaine and willing to stop it. Code Status: Full code DVT Prophylaxis: Eliquis Lines/Tubes: PIV Nutrition: Heart healthy diet PT:yes Patient's current condition is guarded we will continue to follow patient in AM . Date of Service: Jun 06, 2025 Billing Provider: MARC LOPES MD Common Visit Codes: [id number] INP/OBS CARE(HIGH) MARC LOPES MD Jun 06, 2025 19:51
[2025-06-07 06:00] VITALS: BP 118/70; PULSE 58; RESP 12; TEMP 97.6; O2SAT 98
[2025-06-07 06:32] LABS: MEAN PLATELET VOLUME 8.9 FL (7.4-10.4); RED CELL DISTRIBUTION WIDTH 19.3 % (11.5-14.5)
[2025-06-07 06:53] LABS: CREATININE 1.37 MG/DL (0.60-1.10); TOTAL CARBON DIOXIDE 22.3 MMOL/L (24-32); eCRCL 68 ML/MIN; eGFR 53 ML/MIN
[2025-06-07 08:00] VITALS: RESP 14; O2SAT 98
[2025-06-07 10:00] VITALS: BP 126/91; PULSE 53; RESP 17; TEMP 98; O2SAT 100
[2025-06-07 14:17] VITALS: RESP 17
[2025-06-07] MEDS: diazepam inj 5 MG/ML inj. IV ONE (14:17)
--- NOTE | 2025-06-07 15:44 | RADIOLOGY REPORT ---
PROCEDURE: MR MRI HEAD Indication: TIA , abnormal CTA head and neck COMPARISON: 06/04/2025 TECHNIQUE: Multiplanar multisequence images of the brain are obtained. FINDINGS: There is diffusion restriction within the right parietal cortex measuring 2.7 x 1.1 cm. There is no intracranial hemorrhage. No extra-axial fluid collection, mass effect or midline shift. The ventricles are midline and normal in size. The cisterns are patent. Normal intracranial flow voids are preserved. No abnormal susceptibility signal. Mucosal thickening ethmoids and bilateral maxillary sinuses small bilateral mastoid effusions, [id number]. The visualized orbits are unremarkable. IMPRESSION: Acute infarction right parietal cortex measuring 2.7 x 1.1 cm.
[2025-06-07] MEDS ORDERED: CLOP-32 PO (16:54)
[2025-06-07] MEDS ORDERED: SPIR25TA PO (16:54)
[2025-06-07] MEDS ORDERED: ATOR20TA66 PO (16:54)
[2025-06-07] MEDS ORDERED: METO-395 PO (16:54)
[2025-06-07] MEDS ORDERED: EMPA10TA PO (16:54)
[2025-06-07] MEDS ORDERED: LOSA25TA41 PO (17:04)
[2025-06-07] MEDS ORDERED: APIX5TAB3 PO (17:16)
--- NOTE | 2025-06-07 20:56 | DISCHARGE SUMMARY ---
Discharge Summary Providers to ~ Discharge Summary Admission Diagnosis: TIA,AFIB Hospital Course DATE OF ADMISSION: June 04, 2025 DATE OF DISCHARGE: June 07, 2025 CBC testing done on June 07, 2025 showed WBC 7.7 hemoglobin 17.3 hematocrit 51.7 platelet count 150. Serum chemistry done on June 07, 2025 sodium 136 potassium 4.6 creatinine 1.37 GFR 53. Hemoglobin A1c 5.6, AST 45 ALT 71 alkaline phosphatase 88, proBNP 2358. MRI HEADIMPRESSION: Acute infarction right parietal cortex measuring 2.7 x 1.1 cm. ECHOCARDIOGRAMConclusion LV is moderately dilated with moderate concentric hypertrophy. Overall systolic function appears severely reduced with global hypokinesis. LVEF is 35%. RV appears mildly dilated with normal contractility. RVSP is estimated at 40 mmHG. Left atrium is severely dilated. Saline study was performed with 2 IV injections of 10 ccs of agitated normal saline at rest, with cough, and with valsalva. Negative saline study for right to left flow. Trileaflet AV appears sclerotic without stenosis. Trace insufficiency. MV is thickened with mild annular thickening and no stenosis. Trace to mild mitral regurgitation. The tricuspid valve is normal in structure. Trace tricuspid regurgitation. The pulmonary valve is normal in structure. Trace pulmonic insufficiency. The ascending aorta is measured at 4.0 cm. There is no pericardial effusion. CHEST,SINGLE VIEWIMPRESSION: Cardiomegaly. CTA NECK/HEADIMPRESSION: 1. 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 DDX includes dissection or atherosclerotic occlusion. 2. Otherwise patent arteries in the head and neck without large vessel occlusion, significant stenosis, aneurysm, AVM, or dissection. CT STROKE ALERTIMPRESSION: No acute intracranial abnormality. Discharge Diagnosis\Comment: Acute infarction right parietal cortex, new onset atrial fibrillation rate controlled, acute kidney injury, new onset congestive heart failure, active use of cannabis and cocaine, testosterone use history. Operations\Procedures: None Consultants: Cheryl Ruckers [facility] Neurology specialist Complications: None Condition on DC: Stable New Medications: Clopidogrel Bisulfate (Plavix) 75 Mg Tablet 1 TAB PO DAILY for 30 Days, #30 TAB 0 Refills Losartan Potassium (Losartan Potassium) 25 Mg Tablet 1 TAB PO DAILY for 30 Days, #30 TAB 0 Refills Apixaban (Eliquis) 5 Mg Tablet 5 MG PO BID for 30 Days, #60 TAB Atorvastatin Calcium (Atorvastatin Calcium) 20 Mg Tablet 80 MG PO DAILY for 30 Days, #30 TAB Empagliflozin (Jardiance) 10 Mg Tablet 10 MG PO DAILY for 30 Days, #30 TAB Metoprolol Succinate (Metoprolol Succinate) 25 Mg Tab.sr.24h 25 MG PO DAILY for 30 Days, #30 TAB.SR Spironolactone (Aldactone) 25 Mg Tablet 12.5 MG PO DAILY@0830 for 30 Days, #30 TAB Discontinued Medications: Home Med List (No Home Medications) Each Discharge Summary: A 59-year-old male patient with a history of transient ischemic attack (TIA) two years ago, but no other significant medical history, presented to the ED with complaints related to his left upper extremity. Patient's TIA has resolved. Patient also developed new onset atrial fibrillation rate controlled. He is currently being monitored for further strokes, being treated for AFib. Patient was seen in his room as per patient his weakness over left upper extremity resolved he was ambulating well speech normal. 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 Ivan and he does not recommend any surgical procedure and to consult tele Neurology specialist who evaluated the patient. Neuro checks in place he is on Eliquis for his newly diagnosed atrial fibrillation. Followed up with lipid panel, echocardiogram with bubble study, MRI head and finding mentioned Patient is ambulating well , no speech abnormality Patient's MRI positive for acute CVA Acute infarction right parietal cortex josephine uring 2.7 x 1.1 cm. Patient was started on Plavix Newly diagnosed atrial fibrillation, rate controlled Agustín Vasc score 2 Initiated the patient on Eliquis 5 mg b.i.d. Continue telemetry monitoring TSH normal Cardiology consultation done patient is on metoprolol and Eliquis Followed cardiology team recommendation Acute kidney injury on CKD stage II RISHABH secondary to possible vasomotor nephropathy Patient's creatinine is elevated 1.46 Ordered urine lytes Possible newly diagnosed congestive heart failure NYHA class I, AHA stage A Patient stated that he has been feeling fatigue, increase in shortness of breath and getting winded down compared to before, decrease in physical activity ProBNP elevated at 2358, chest x-ray shows cardiomegaly Echocardiogram done which showed ejection fraction 35% with RVSP 40. Cardiology consultation requested from Dr. Ethan Smith and Cardiology team evaluated the patient . Recommended to start Entresto, spironolactone, metoprolol, Jardiance and to continue Eliquis 5 mg b.i.d. for afib . Possible newly diagnosed type 2 diabetes mellitus Patient reported increased symptoms of fatigue, frequent urination Blood glucose levels elevated 147, initiated the patient on hyperglycemia hypoglycemic protocol HbA1c 5.6 Patient mentioned that he is taking testosterone in outpatient setting and I strongly recommended to stop him as it increases risk for stroke and DE Active use of marijuana/cocaine U tox negative Substance use navigator consulted Patient admitted that he use cocaine and willing to stop it. Patient is feeling better he has been afebrile and getting discharged home in stable condition. Patient is seen and examined on the day of discharge. All labs, diagnostic workup and discharge plan discussed with patient and before her discharge. All questions and queries answered to the best of my professional medical knowledge. I heard patient's concerns and address appropriately. Patient was cleared by Physical therapy team for home discharge . safety and skill based pay manager involved in patient's discharge plan. Discharge instructions provided to the patient. Follow-up with Neurology specialist for Acute infarc tion right parietal cortex measuring 2.7 x 1.1 cm. in one week. Detailed counseling done regarding atrial fibrillation and new onset congestive heart failure care plan discussed in detail. Patient was advised to get the primary care physician and get the referral to Neurology specialist practice support specialist in outpatient setting. Patient was strongly advised to stop testosterone , tobacco alcohol and risks explained. Echocardiogram findings explained to him. Adjustment of blood pressure medication done during hospital stay. Maintain blood pressure and heart rate log book for 2-3 weeks and follow- up with the primary care physician/ oncology specialist . Discussed starting Entresto with practice support specialist once blood pressure is stable. General-patient not in any acute distress, obese, alert awake oriented, HEENT-atraumatic normocephalic, neck supple without elevated JVD, no thyromegaly or carotid bruit. No lymphadenopathy bilaterally. Eyes-no icterus or pallor seen in eyes Chest-clear to auscultation bilaterally, breathing nonlabored no tachypnea, no wheezing, no crepitation, no crackles. Heart-S1-S2 normal, regular heart rate no murmur Abdomen bowel sounds positive on auscultation, soft nondistended nontender no guarding, no rigidity Skin -multiple skin tattoo present over extremities and chest Neurology-grossly intact, nonfocal alert awake oriented, no focal neurological deficit present no drooping of angle of mouth no speech abnormality no weakness over extremities. Extremity- no pedal edema able to move all 4 extremities, ambulating well Psychiatry - patient is not confused or agitated cooperated during physical examination *Problems/Diagnosis: (1) Cerebral infarction Status: Acute (2) Atrial fibrillation Status: Acute Total Time Spent on D/C: > 30 Minutes Date of Service: Jun 07, 2025 Billing Provider: MARC LOPES MD Common Visit Codes: 27754-EPE/OBS DISCH DAY >30min MARC LOPES MD Jun 07, 2025 20:47
== END 2025-06-07 18:05 | disposition home or self-care (01) | DRG 45 ==
LOC: ER 17:55 → ORTHO 4S 20:37 → UNDOADMIN 21:47 → ORTHO 4S 21:47
PROVIDERS: ADMIT Internal Medicine Pulmonary Disease; ATTEND Internal Medicine
PROC: B3251ZZ Computerized Tomography (CT Scan) of Bilateral Common Carotid Arteries using Low Osmolar Contrast (ICD-10-PCS; principal; 2025-06-04)
PROC: B32G1ZZ Computerized Tomography (CT Scan) of Bilateral Vertebral Arteries using Low Osmolar Contrast (ICD-10-PCS; 2025-06-04)
PROC: B32R1ZZ Computerized Tomography (CT Scan) of Intracranial Arteries using Low Osmolar Contrast (ICD-10-PCS; 2025-06-04)
PROC: B3281ZZ Computerized Tomography (CT Scan) of Bilateral Internal Carotid Arteries using Low Osmolar Contrast (ICD-10-PCS; 2025-06-04)
DX: I63.9 Cerebral infarction, unspecified (principal); N17.0 Acute kidney failure with tubular necrosis; E44.0 Moderate protein-calorie malnutrition; I50.22 Chronic systolic (congestive) heart failure; I48.91 Unspecified atrial fibrillation; E11.22 Type 2 diabetes mellitus with diabetic chronic kidney disease; F10.10 Alcohol abuse, uncomplicated; F19.10 Other psychoactive substance abuse, uncomplicated; I65.02 Occlusion and stenosis of left vertebral artery; Z68.31 Body mass index [BMI] 31.0-31.9, adult; N18.2 Chronic kidney disease, stage 2 (mild); Z86.73 Personal history of transient ischemic attack (TIA), and cerebral infarction without residual deficits; Z83.3 Family history of diabetes mellitus
CPT/HCPCS: 36415; 70450; 70496; 70498; 70551; 71045; 80048; 80053; 80061; 80305; 81003; 82948; 83036; 83540; 83550; 83735; 83880; 83930; 83935; 84100; 84300; 84443; 85007; 85008; 85025; 85610; 85730; 86885; 86900; 86901; 87081; 92508; 93005; 93306; 96360; 99291; G0378; J1815; J3360; J7030; Q9967

== ENCOUNTER 2025-07-08 17:27 | Emergency (ER) | payer MEDICAID ==
[~2025-07-08] VITALS: Ht 190.5 cm; Wt 109.1 kg
[~2025-07-08 17:27] MED LIST: APIX5TAB3 PO; ATOR20TA66 PO; CLOP-32 PO; CLOP75TA34 PO; EMPA10TA PO; LOSA25TA41 PO; METO-395 PO; SPIR25TA PO; SPIR25TA5 PO
--- NOTE | 2025-07-08 17:46 | Physician Documentation ---
History of Present Illness ~ Chief Complaint: Foot pain Stated Complaint: FEET PAIN Time Seen by MD: 23:53 Primary Medical Doctor: Hospitalist/Residency Service HPI Patient is a very pleasant 59-year-old male that presents to the emergency department for evaluation of right great toe pain and lateral pain and swelling to the right foot. Patient reports his symptoms have been over the last week or so. With the lateral erythema and swelling noted over the last 24-48 hours. Patient reports that he has a history of AFib possibly diabetic high blood pressure high cholesterol in his medicated for all. Patient reports that he is on Eliquis. Patient reports that he is currently being evaluated for neuropathy but has not been told that he has a neuropathy as of yet. Patient reports that he always has cold hands and feet. 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 Patient denies fever chills nausea vomiting diarrhea at this time. Tetanus witin 5 years: No Medication Reconciliation Allergies: Coded Allergies: No Known Allergies (Unverified , 06/04/25) Scheduled Apixaban (Eliquis), 5 MG PO BID Apixaban (Eliquis), 5 MG PO BID Atorvastatin Calcium (Atorvastatin Calcium), 80 MG PO DAILY Atorvastatin Calcium (Atorvastatin Calcium), 80 MG PO DAILY Clopidogrel Bisulfate (Plavix), 1 TAB PO DAILY Clopidogrel Bisulfate (Clopidogrel), 75 MG PO DAILY Empagliflozin (Jardiance), 10 MG PO DAILY Empagliflozin (Jardiance), 1 TAB PO DAILY Losartan Potassium (Losartan Potassium), 1 TAB PO DAILY Losartan Potassium (Losartan Potassium), 1 TAB PO DAILY Metoprolol Succinate (Metoprolol Succinate), 25 MG PO DAILY Metoprolol Succinate (Metoprolol Succinate), 1 TAB PO DAILY Spironolactone (Aldactone), 12.5 MG PO DAILY@0830 Spironolactone (Spironolactone), 12.5 MG PO DAILY Past Medical History Past Medical History: No Pertinent History Past Surgical History: no surgical history Patient History: FH: diabetes mellitus FATHER Alcohol Use: Occasionally Physical Exam Vital Signs: Temperature: 97.9, Heart Rate: 70, Respiratory Rate: 14, BP: 186/90, Pulse Oximetry: 99, Weight: 109.090 Oxygen Flow Rate: 0 Procedures Procedures Right 5th toe reduction: Status post informed verbal consent traction was pulled on patient's affected toe for multiple angles and different techniques however we are unable to reduce patient's dislocated toe. Progress Results/Orders Results/Orders Orders - HERI GOMEZ MD Foot, Complete (3vw Min) (07/09/25 00:29) Foot, Complete (3vw Min) (07/09/25 00:29) Completed Orders - HERI GOMEZ MD Stat Ekg (07/08/25 ) Foot, Complete (3vw Min) (07/09/25 00:29) Foot, Complete (3vw Min) (07/09/25 00:29) Vital Signs 07/08/25 07/08/25 17:34 20:00 Temp 97.9 Pulse 70 Resp 14 16 B/P (MAP) 186/90 Pulse Ox 99 O2 Flow Rate 0 Medical Decision Making Additional information obtaine: old records Findings Patient presents to the emergency room with deformity noted to his lateral right foot incidentally. Differentials include but are not limited to fractures, dislocations, abscess, soft tissue injury, foreign body therefore x-ray performed. X-ray is negative for foreign body however that has appear to be a dislocation of patient's 5th MP joint. No rupture in skin surface and he had not believe this represents infectious process. Attempts at reduction of patient's affected toe with traction were not successful. We will refer to ortho. General Diff Dx:Considerations: Include: Abrasion, Contusion, Fracture, Hematoma, Laceration, Malunion, Neurovascular injury, Open fracture, Sprain, Ulcer, Other Knee Diff Dx:Considerations: Include: Abrasion, Arthritis, Contusion, DJD, Fracture-femur, Fracture-fibula, Fracture-patella, Fracture-tibia, Gout, Hematoma, Laceration, Meniscus injury, Neurovascular injury, Open fracture, Rheumatoid arthritis, Septic, Sprain, Sprain-MCL, Sprain-LCL, Sprain-ACL, Sprain-PCL, Other Ankle Diff Dx:Considerations: Include: Abrasion, Arthritis, Contusion, DJD, Fracture-metatarsal, Fracture-fibula, Fracture-tarsal, Fracture-tibia, Gout, Hematoma, Laceration, Malunion, Neurovascular injury, Nonunion, Open fracture, Osteomyelitis, Rheumatoid arthritis, Sprain, Septic, Ulcer, Other Foot Diff Dx:Considerations: Include: Abrasion, Arthritis, Cellulitis, Contusion, Dislocation, DJD, Fracture-metatarsal, Fracture-phalynx, Fracture- tarsal, Gout, Hematoma, Ingrown toenail, Laceration, Malunion, Neurovascular injury, Open fracture, Paronychia, Puncture, Rheumatoid, Sprain, Septic, Subungual hematoma, Ulcer, Other Toe Diff Dx:Considerations: Include: Abrasion, Cellulitis, Contusion, Dislocation, Felon, Fracture, Hematoma, Laceration, Neurovascular injury, Open fracture, Paronychia, Subungual hematoma, Other Departure Disposition: HOME / SELF CARE / HOMELESS Impression: Primary Impression: Dislocated toe Condition: Stable Discharge Instructions: Toe Dislocation Additional Instructions: We are unable to reduce your dislocated pinky toe. Call orthopedist tomorrow to arrange for follow up for management. Referrals: NO PRIMARY CARE PROVIDER (PCP) KASIE WHITEHEAD MD Signature Scribe Signature: No scribe Attestation: The note accurately reflects work and decisions made by me.Heri Gomez MD 07/09/25 01:33 JANET ARTIS Jul 08, 2025 17:46 HERI GOMEZ MD Jul 09, 2025 01:35
--- NOTE | 2025-07-08 20:06 | ELECTROCARDIOGRAPH REPORT ---
[facility] Test Date: 2025-07-08 Test Time: 20:02:03 Pat Name: CESAR GILLIAM Department: EMERGENCY ROOM Room: Gender: M Safemaker: SOTO : [id number] Requested By: AARON BAUTISTA Order Number: [id number] Reading MD: Dr. MONTY Mendoza Measurements Intervals New Site Rate: 82 P: 0 WI: 0 QRS: 100 QRSD: 111 T: 259 QT: 368 QTc: 430 Interpretive Statements Atrial fibrillation Probable RVH w/ secondary repol abnormality Repol abnrm suggests ischemia, diffuse leads Electronically Signed On 07-11-2025 18:08:[address] MONTY Mendoza Please click the below link to view image of tracing.
--- NOTE | 2025-07-09 01:13 | RADIOLOGY REPORT ---
CLINICAL INDICATION: BILATERAL FOOT PAIN, RIGHT TECHNIQUE: 3 views DI FOOT, COMPLETE (3VW MIN) Comparison: None FINDINGS: Large Soft tissue swelling surrounding the 5th metatarsophalangeal joint with erosive appearance of the articular surfaces and dorsal subluxation/dislocation. No other radiographic findings of osteomyelitis. Milder soft tissue swelling along the 1st metatarsophalangeal joint with severe osteoarthrosis. IMPRESSION: Appearance of the right 5th MTP joint compatible with osteomyelitis/septic arthritis with joint malalignment. Acute fracture dislocation is less likely, correlate with history and physical exam.
--- NOTE | 2025-07-09 01:21 | RADIOLOGY REPORT ---
CLINICAL INDICATION: pain, LEFT TECHNIQUE: DI FOOT, COMPLETE (3VW MIN) Comparison: DI FOOT, COMPLETE (3VW MIN) on DOS: 07/09/25 FINDINGS/IMPRESSION: : There is no evidence of acute fracture or dislocation. Mild hallux valgus. Minimal plantar calcaneal enthesopathy. Soft tissues are unremarkable.
[2025-07-09 02:13] VITALS: BP 180/86; PULSE 70; RESP 20; TEMP 98.6; O2SAT 99
== END 2025-07-09 02:14 | disposition home or self-care (01) ==
LOC: ER 17:28
DX: S93.124A Dislocation of metatarsophalangeal joint of right lesser toe(s), initial encounter (principal); I48.91 Unspecified atrial fibrillation; G62.9 Polyneuropathy, unspecified; Z79.01 Long term (current) use of anticoagulants; Z79.899 Other long term (current) drug therapy; Z72.89 Other problems related to lifestyle; X58.XXXA Exposure to other specified factors, initial encounter; Y93.89 Activity, other specified; Y92.89 Other specified places as the place of occurrence of the external cause; Y99.8 Other external cause status
CPT/HCPCS: 28630; 73630; 93005; 99284